=== PATIENT | male | born 1990 | race Caucasian/White ===

== ENCOUNTER 2020-05-17 09:50 | Emergency (ER) | payer OTHER ==
[~2020-05-17] VITALS: Ht 170.2 cm; Wt 64.2 kg
[2020-05-17 10:11] LABS: ABSOLUTE NEUTROPHILS 3.7 thou/uL (1.4-8.2); BASOPHILS 0.8 % (0.0-2.0); EOSINOPHILS 2.8 % (0.0-3.0); HEMATOCRIT 44.7 % (42.0-52.0); LYMPHOCYTES 34.8 % (24.0-44.0); MCH 30.7 pg (26.0-34.0); MCHC 33.5 g/dL (28.0-37.0); MCV 91.6 fL (80.0-100.0); MONOCYTES 8.3 % (1.0-8.0); PLATELET COUNT 292 thou/uL (150-400); POLYS 53.3 % (36.0-66.0); RBC 4.88 mil/uL (4.50-6.00); RDW 13.5 % (10.5-14.5); WBC 6.9 thou/uL (4.0-11.0)
[2020-05-17 10:18] LABS: CALCIUM 9.4 mg/dL (8.5-10.1); CREATININE 1.2 mg/dL (0.7-1.3); POTASSIUM 3.4 mmol/L (3.5-5.1)
[2020-05-17 12:31] LABS: URINE BLOOD 3+ (Negative); URINE CLARITY SL CLOUDY; URINE COLOR YELLOW; URINE GLUCOSE-RANDOM* NEGATIVE (Negative); URINE KETONES NEGATIVE (Negative); URINE LEUKOCYTES-REFLEX NEGATIVE (Negative); URINE NITRITE-REFLEX NEGATIVE (Negative); URINE PROTEIN (DIPSTICK) 2+ (Negative); URINE SPECIFIC GRAVITY >= 1.030 (1.005-1.035); URINE UROBILINOGEN 0.2 E.U./dl (0.2-1.0)
[2020-05-17 12:36] LABS: ICTOTEST (BILI CONFIRMATORY) Negative (Negative)
[2020-05-17 12:37] LABS: URINE BILIRUBIN NEGATIVE (Negative)
[2020-05-17 12:47] LABS: CASTS None Seen /LPF (None Seen); CRYSTALS None Seen /LPF (None Seen); SQUAMOUS 0-3 Few /LPF (0-3)
[2020-05-17 12:52] LABS: BACTERIA-REFLEX 1-9 Few /HPF (None Seen); URINE RBC 3-10 Few /HPF (0-2); URINE WBC-REFLEX 0-5 Rare /HPF (0-5)
[2020-05-17] MEDS ORDERED: FLOMAX0.4 MG PO (12:59)
[2020-05-17] MEDS ORDERED: NORCO 5-325 TA1 EAC2 PO (12:59)
[2020-05-17 13:00] VITALS: BP 124/70
[2020-05-17] MEDS ORDERED: ZOFRAN ODT4 MG PO (13:02)
== END 2020-05-17 13:00 | disposition home or self-care (01) ==
LOC: ER 09:50
PROVIDERS: Emergency Medicine
DX: N20.0 Calculus of kidney (principal)